=== PATIENT | male | born 1955 | race Caucasian/White ===

== ENCOUNTER → 2018-07-05 09:21 | Outpatient (CLI) | payer OTHER, SELFPAY ==
[2018-07-05 09:56] LABS: Add Manual Diff / Slide Review NO; Basophils Absolute Auto 0 /uL (0-100); Basophils Percent Auto 0.7 % (0-2); Eosinophils Absolute Auto 300 /uL (0-450); Eosinophils Percent Auto 4.9 % (2-4); Hematocrit 48.4 % (41-53); Hemoglobin 16.2 g/dL (13.5-17.5); Lymphocytes Absolute Auto 2200 /uL (1100-4500); Lymphocytes Percent Auto 35.5 % (25-40); Mean Corpuscular HGB Conc 33.4 % (30-36); Mean Corpuscular Volume 89.9 fL (80-100); Monocytes Absolute Auto 600 /uL (0-900); Monocytes Percent Auto 9.2 % (3-14); Neutrophils Absolute Auto 3000 /uL (1500-7000); Neutrophils Percent Auto 49.7 % (50-75); Platelet Count 246 X10^3/uL (150-400); Red Blood Cell Count 5.38 X10^6/uL (4.5-5.9); Red Cell Distribution Width 12.9 % (11.6-14.8); White Blood Cell Count 6.1 X10^3/uL (4.5-11.0)
[2018-07-05 10:47] LABS: Alanine Aminotransferase 49 IU/L (21-72); Albumin 4.6 g/dL (3.5-5.0); Albumin Globulin Ratio 1.6 (1.0-2.8); Alkaline Phosphatase 60 U/L (38-126); Aspartate Aminotransferase 27 IU/L (17-59); BUN Creatinine Ratio 15.5 (6-22); Bilirubin Total 0.9 mg/dL (0.2-1.3); Blood Urea Nitrogen 17 mg/dL (9-20); Calcium 8.9 mg/dL (8.4-10.2); Carbon Dioxide 28 mmol/L (22-32); Chloride 102 mmol/L (98-107); Cholesterol 221 mg/dL (140-199); Estimated Glomerular Filt Rate > 60.0 mL/min (>60); Globulin 2.9 g/dL (1.7-4.1); Glucose 101 mg/dL (80-110); HDL Cholesterol 34 mg/dL (40-60); HEMOLYSIS < 15 (0-50); LDL Cholesterol Calculated 127 mg/dL (<100); Potassium 4.4 mmol/L (3.4-5.1); Sodium 140 mmol/L (137-145); Total Protein 7.5 g/dL (6.3-8.2); Triglycerides 301 mg/dL (35-150)
[2018-07-05 11:11] LABS: Prostate Specific Antigen Scrn 1.13 ng/mL (0.1-4.0)
[2018-07-05 12:38] LABS: TSH w/ Reflex to FT4 2.28 uIU/mL (0.47-4.68)
== END ==
PROVIDERS: Family Provider Family Medicine; PCP Family Medicine; Visit Provider Family Medicine
DX: I83.019 Varicose veins of right lower extremity with ulcer of unspecified site (principal); L97.919 Non-pressure chronic ulcer of unspecified part of right lower leg with unspecified severity; Z12.5 Encounter for screening for malignant neoplasm of prostate; Z13.220 Encounter for screening for lipoid disorders
CPT/HCPCS: 36415; 80053; 80061; 84443; 85025; G0103

== ENCOUNTER → 2019-01-01 10:12 | Outpatient (CLI) | payer OTHER, SELFPAY ==
[2019-01-01 11:04] LABS: Cholesterol 182 mg/dL (140-199); HDL Cholesterol 43 mg/dL (40-60); LDL Cholesterol Calculated 106 mg/dL (<100); Triglycerides 167 mg/dL (35-150)
== END ==
PROVIDERS: PCP Family Medicine; Visit Provider Family Medicine
DX: E78.2 Mixed hyperlipidemia (principal)
CPT/HCPCS: 36415; 80061

== ENCOUNTER → 2019-04-30 12:52 | Outpatient (CLI) | payer OTHER, SELFPAY ==
[2019-04-30 13:55] LABS: BUN Creatinine Ratio 14.5 (6-22); Blood Urea Nitrogen 16 mg/dL (9-20); Calcium 9.3 mg/dL (8.4-10.2); Carbon Dioxide 30 mmol/L (22-32); Chloride 100 mmol/L (98-107); Estimated Glomerular Filt Rate > 60.0 mL/min (>60); Glucose 93 mg/dL (80-110); HEMOLYSIS 15 (0-50); Potassium 4.3 mmol/L (3.4-5.1); Sodium 139 mmol/L (137-145)
[2019-04-30 19:03] LABS: Bacteria Urine None Seen
[2019-04-30 19:51] LABS: Appearance Urine UA CLOUDY; Bilirubin Urine UA NEGATIVE (NEGATIVE); Color Urine UA YELLOW; Glucose Urine UA NEGATIVE (Negative); Ketones Urine UA NEGATIVE (NEGATIVE); Leukocyte Esterase Urine UA NEGATIVE (NEGATIVE); Nitrite Urine UA NEGATIVE (Negative); Occult Blood Urine UA 2+ (Negative); Protein Urine UA NEGATIVE (Negative); Urobilinogen Urine UA 0.2 E.U./dL (0.2)
[2019-04-30 20:00] LABS: Amorphous Sediment Urine 3+; Culture Indicated Urine Cult Not Indicated; RBC Urine 5-10/HPF (0-5/HPF); Squamous Epithelial Cell Urine 0-1 /HPF (0-5/HPF); WBC Urine 0-1/HPF (0-5/HPF)
== END ==
PROVIDERS: Family Provider Family Medicine; PCP Family Medicine; Visit Provider Nurse Practitioner
DX: R10.9 Unspecified abdominal pain (principal)
CPT/HCPCS: 36415; 80048; 81001

== ENCOUNTER → 2019-05-03 11:01 | Outpatient (CLI) | payer OTHER, SELFPAY ==
--- NOTE | 2019-05-03 11:02 | DI.CT.S_ITS ---
PROCEDURE: CT KIDNEY URETER BLADDER (KUB) INDICATIONS: hematuria, left flank pain TECHNIQUE: Noncontrast 5 mm thick sections acquired from the diaphragms to the symphysis. 5 mm thick coronal and sagittal reformats were then performed. For radiation dose reduction, the following was used: automated exposure control, adjustment of mA and/or kV according to patient size. COMPARISON: None. FINDINGS: Image quality: Excellent. Lung bases: Lung bases are clear. Heart size is normal. Urinary system: Both kidneys are normal in size. No kidney stones. No hydronephrosis or perinephric fat stranding. There are parapelvic cysts in kidneys bilaterally, more numerous on the left. Both ureters appear non-dilated throughout their expected courses. Bladder wall thickness is normal; no calcified bladder stones. Other solid organs: Liver is normal in size. Gallbladder is normal. Pancreas is normal in contours. Spleen is normal in size. No adrenal nodules. Peritoneum and bowel: Unenhanced bowel loops demonstrate normal wall thickness and caliber. There are numerous colonic diverticula. There is focal thickening and pericolonic stranding in the descending colon consistent with diverticulitis. A trace amount of free fluid in the left paracolic gutter. No free or air. Normal appendix. Nodes and vessels: No retroperitoneal or mesenteric adenopathy by size criteria. Aorta and inferior vena cava are normal in caliber. Abdominal wall: There is a fat containing umbilical hernia. Pelvis: No free pelvic fluid. No inguinal hernias or adenopathy. Bones: No suspicious bony lesions. No vertebral body compression fractures. IMPRESSION: 1. No renal stone or hydronephrosis. Bilateral parapelvic cysts are present. No definitive CT findings to explain left flank pain and hematuria. 2. Diverticulosis. There is focal thickening and pericolonic stranding in the descending colon consistent with acute diverticulitis. No diverticular abscess. 3. A fat containing umbilical hernia. Dictated by: Keo Limon M.D. on 05/03/2019 at 13:28 Approved by: Keo Limon M.D. on 05/03/2019 at 17:26
== END ==
PROVIDERS: Family Provider Family Medicine; PCP Family Medicine; Visit Provider Nurse Practitioner
DX: R31.9 Hematuria, unspecified (principal); R10.9 Unspecified abdominal pain; N28.1 Cyst of kidney, acquired; K57.90 Diverticulosis of intestine, part unspecified, without perforation or abscess without bleeding; K42.9 Umbilical hernia without obstruction or gangrene
CPT/HCPCS: 74176

== ENCOUNTER → 2020-01-28 10:37 | Outpatient (CLI) | payer OTHER, SELFPAY ==
--- NOTE | 2020-01-28 10:42 | DI.RAD.S_ITS ---
PROCEDURE: XR KNEE LT 3V INDICATIONS: Knee pain no injury TECHNIQUE: 3 views of the knee were acquired. COMPARISON: None. FINDINGS: Bones: No fractures or dislocations. No suspicious bony lesions. Degenerative spurring. No definite joint space narrowing. Soft tissues: No joint effusion. No suspicious soft tissue calcifications. IMPRESSION: Mild degenerative changes. Dictated by: Leeroy Chandra M.D. on 01/28/2020 at 16:14 Approved by: Leeroy Chandra M.D. on 01/28/2020 at 16:15
--- NOTE | 2020-01-28 10:42 | DI.RAD.S_ITS ---
PROCEDURE: XR KNEE RT 3V INDICATIONS: Knee pain no injury TECHNIQUE: 3 views of the knee were acquired. COMPARISON: None. FINDINGS: Bones: No fractures or dislocations. There is chronic osseous fragmentation and corticated ossicle formation at the tibial tuberosity. There is suggestion of thickening of the distal patellar tendon. Soft tissues: No joint effusion. No suspicious soft tissue calcifications. IMPRESSION: Chronic sequela suggestive of Herlong-Schlatter syndrome. Dictated by: Leeroy Chandra M.D. on 01/28/2020 at 16:15 Approved by: Leeroy Chandra M.D. on 01/28/2020 at 16:17
[2020-01-28 11:04] LABS: Add Manual Diff / Slide Review NO; Basophils Absolute Auto 0 /uL (0-100); Basophils Percent Auto 0.6 % (0-2); Eosinophils Absolute Auto 300 /uL (0-450); Hematocrit 45.4 % (41-53); Hemoglobin 15.9 g/dL (13.5-17.5); Lymphocytes Absolute Auto 1900 /uL (1100-4500); Lymphocytes Percent Auto 32.7 % (25-40); Mean Corpuscular Hemoglobin 30.8 PG (26-34); Monocytes Absolute Auto 500 /uL (0-900); Monocytes Percent Auto 8.2 % (3-14); Neutrophils Absolute Auto 3100 /uL (1500-7000); Neutrophils Percent Auto 53.5 % (50-75); Platelet Count 235 X10^3/uL (150-400); Red Blood Cell Count 5.15 X10^6/uL (4.5-5.9); Red Cell Distribution Width 12.8 % (11.6-14.8); White Blood Cell Count 5.7 X10^3/uL (4.5-11.0)
[2020-01-28 11:21] LABS: Alanine Aminotransferase 51 IU/L (<50); Albumin 4.4 g/dL (3.5-5.0); Albumin Globulin Ratio 1.7 (1.0-2.8); Alkaline Phosphatase 61 U/L (38-126); Aspartate Aminotransferase 37 IU/L (17-59); BUN Creatinine Ratio 20.8 (6-22); Bilirubin Total 0.7 mg/dL (0.2-1.3); Blood Urea Nitrogen 20 mg/dL (9-20); Calcium 9.4 mg/dL (8.4-10.2); Carbon Dioxide 27 mmol/L (22-32); Chloride 105 mmol/L (98-107); Cholesterol 165 mg/dL (140-199); Estimated Glomerular Filt Rate > 60.0 mL/min (>60); Globulin 2.6 g/dL (1.7-4.1); Glucose 102 mg/dL (80-110); HDL Cholesterol 49 mg/dL (40-60); HEMOLYSIS < 15 (0-50); LDL Cholesterol Calculated 90 mg/dL (<100); Potassium 4.7 mmol/L (3.4-5.1); Sodium 139 mmol/L (137-145); Triglycerides 130 mg/dL (35-150)
[2020-01-28 11:48] LABS: Prostate Specific Antigen Scrn 1.06 ng/mL (0.1-4.0)
== END ==
PROVIDERS: Family Provider Family Medicine; PCP Family Medicine; Referring Provider Family Medicine; Visit Provider Family Medicine
DX: M25.562 Pain in left knee (principal); M25.561 Pain in right knee; E78.2 Mixed hyperlipidemia
CPT/HCPCS: 36415; 73562; 80053; 80061; 85025; G0103

== ENCOUNTER → 2020-02-09 08:37 | Outpatient (CLI) | payer OTHER, SELFPAY ==
[2020-02-10 18:56] LABS: COVID19 Sendout Not Detected (Not Detect)
== END ==
PROVIDERS: Family Provider Family Medicine; PCP Family Medicine; Visit Provider Nurse Practitioner
DX: Z11.59 Encounter for screening for other viral diseases (principal)
CPT/HCPCS: 87635

== ENCOUNTER 2020-02-12 12:50 | Day surgery (SDC) | payer OTHER, SELFPAY ==
[2020-02-07 15:09] VITALS: BMI 26.6
[2020-02-12] MEDS: LACTATED RINGERS 1,000 ML 42 ML IV (13:11)
[2020-02-12 13:24] VITALS: BP 118/79; PULSE 68; RESP 16; TEMP 36.4; O2SAT 98; BMI 26.6
--- NOTE | 2020-02-12 14:01 | PM.PREOP ---
Pre-operative Note COVID-19 COVID-19 status: Negative Interval Note History & Physical reviewed/Exam performed by Physician: Yes Changes to H&P: No
[2020-02-12] MEDS: CEFAZOLIN 2 GM/100 ML FROZ.PIGGY IV (14:21)
--- NOTE | 2020-02-12 14:37 | SUR.OPER ---
Supine on padded OR bed, head on pillow, arms secured on padded arm boards at <90 degrees abduction, legs uncrossed, safety belt at thigh, tape over blanket over lower legs.
[2020-02-12] MEDS: BUPIVACAINE 0.25% (PF) VIAL 30 ML INJ (14:42)
[2020-02-12 15:43] VITALS: BP 91/60; PULSE 58; RESP 13; TEMP 36.4; O2SAT 96
[2020-02-12 15:49] VITALS: BP 101/70; PULSE 58; RESP 11; O2SAT 95
--- NOTE | 2020-02-12 15:53 | P.OP_ITS ---
Operative Date/Time/Diagnoses Date of procedure: 02/12/20 Time of procedure: 15:53 Pre-op diagnosis: left inguinal hernia Post-op diagnosis: same Procedure & Clinicians Procedure: Open left inguinal hernia repair Same procedure as scheduled: Yes Indications: 64-year-old man with a reducible symptomatic left inguinal hernia here for elective repair Surgeon: Ari Landaverde Click Yes if Unassisted: Yes Anesthesia Type: General Operative Notes Findings: Cord lipoma, large direct floor defect Specimen(s): none sent Estimated Blood Loss (mL): 20 Procedure in detail: The patient was placed supine on the table and bilateral lower extremity compression devices were applied. Anesthesia was induced they were intubated with an LMA and received 2g of Ancef. A time-out was performed. They were prepped and draped in sterile fashion. The left external inguinal ring and the anterior superior iliac crest were identified and marked. 1 finger breath above the inguinal ligament the skin was infiltrated with 0.25% bupivacaine. The skin incision was made here and the subcutaneous tissues were divided with electrocautery exposing the external oblique aponeurosis which was then opened along the direction of its fibers. The ilioinguinal nerve was identified on the anterior aspect of the cord and protected. Using a kittner cord was carefully dissected away from the inguinal canal adjacent to the pubic tubercle. The cord was freed and encircled with a Mellissa drain. A sizable direct floor defect was identified. The cremasteric fibers surrounding the cord were divided using electrocautery. The vas deferens and the testicular vessels were preserved and protected. There was no indirect hernia there was a cord lipoma which was skeletonized away from the vas deferens and testicular blood supply. The cord lipoma was skeletonized back to the internal ring ligated with Vicryl and transected. A plug of Prolene mesh was placed into the floor defect and secured with Vicryl suture to both the transversalis and the inguinal ligament. I selected a 7x 15 cm lightweight Pro Loop hernia mesh. The inferior medial aspect of the mesh was anchored to the periosteum of the pubic tubercle such that there was approximately 2 cm of tubercle overlap with 0 Prolene and then was run continuously along the inferior edge of the mesh to the shelving edge of the inguinal ligament. Interrupted 3 0 Vicryl suture was used to anchor the superior aspect of the mesh to the conjoined tendon in several places. The tails were then reapproximated around the spermatic cord loosely. The tails of the mesh were then tucked under the external oblique aponeurosis. The repair was checked for hemostasis. The wound was irrigated with sterile saline. The external oblique aponeurosis was reapproximated in a running fashion using 3 0 Vicryl. The subcutaneous tissues were reapproximated with 3 0 Vicryl skin close d with 4 0 Monocryl followed by the application of Dermabond. At the end of the operation ensure that both testicles were within the scrotum. The sponge instrument count at the end operation was correct. The patient emerged from anesthesia was extubated and transferred to the postoperative care unit in stable condition. A total of 30 ml of of 0.25% bupivicaine was used to infiltrate the skin. Complications: none Post-operative Condition: stable Disposition: same day surgery
[2020-02-12 15:56] VITALS: BP 87/62; PULSE 69; RESP 19; O2SAT 96
[2020-02-12 16:00] VITALS: BP 103/65; BP 94/63; PULSE 66; RESP 12; RESP 20; TEMP 36.4; O2SAT 92; O2SAT 96
[2020-02-12 16:25] VITALS: BP 100/60; PULSE 65; RESP 18; O2SAT 96
== END 2020-02-12 16:30 | disposition home or self-care (01) ==
PROVIDERS: Family Provider Family Medicine; PCP Family Medicine; Referring Provider Family Medicine; Visit Provider Surgery
PROC: (CPT 49505; principal; 2020-02-12 14:15)
DX: K40.90 Unilateral inguinal hernia, without obstruction or gangrene, not specified as recurrent (principal); E78.5 Hyperlipidemia, unspecified; D17.6 Benign lipomatous neoplasm of spermatic cord
CPT/HCPCS: 49505; C1781; J0690; J1100; J2250; J2405; J2704; J3010

== ENCOUNTER → 2021-12-02 10:16 | Outpatient (CLI) | payer OTHER, SELFPAY ==
[2021-12-02 11:12] LABS: Alanine Aminotransferase 39 IU/L (<50); Albumin 4.4 g/dL (3.5-5.0); Albumin Globulin Ratio 1.7 (1.0-2.8); Alkaline Phosphatase 58 U/L (38-126); Aspartate Aminotransferase 32 IU/L (17-59); BUN Creatinine Ratio 14.2 (6-22); Bilirubin Total 0.8 mg/dL (0.2-1.3); Blood Urea Nitrogen 16 mg/dL (9-20); Calcium 9.2 mg/dL (8.4-10.2); Carbon Dioxide 29 mmol/L (22-32); Chloride 104 mmol/L (98-107); Cholesterol 182 mg/dL (140-199); Estimated Glomerular Filt Rate > 60 mL/min (>60); Globulin 2.6 g/dL (1.7-4.1); Glucose 98 mg/dL (80-110); HDL Cholesterol 51 mg/dL (40-60); HEMOLYSIS < 15 (0-50); LDL Cholesterol Calculated 101 mg/dL (<100); Potassium 4.3 mmol/L (3.4-5.1); Sodium 139 mmol/L (137-145); Triglycerides 150 mg/dL (35-150)
[2021-12-02 11:39] LABS: Prostate Specific Antigen Scrn 1.64 ng/mL (0.1-4.0)
== END ==
PROVIDERS: Family Provider Family Medicine; PCP Internal Medicine; Referring Provider Internal Medicine; Visit Provider Internal Medicine
DX: E78.2 Mixed hyperlipidemia (principal); K21.9 Gastro-esophageal reflux disease without esophagitis; Z12.5 Encounter for screening for malignant neoplasm of prostate
CPT/HCPCS: 36415; 80053; 80061; G0103

== ENCOUNTER → 2023-06-10 09:01 | Outpatient (CLI) | payer OTHER, SELFPAY ==
[2023-06-10 10:08] LABS: Alanine Aminotransferase 39 IU/L (<50); Albumin Globulin Ratio 1.5 (1.0-2.8); Alkaline Phosphatase 52 U/L (38-126); Aspartate Aminotransferase 31 IU/L (17-59); BUN Creatinine Ratio 18.6 (6-22); Bilirubin Total 0.7 mg/dL (0.2-1.3); Blood Urea Nitrogen 18 mg/dL (9-20); Calcium 9.2 mg/dL (8.4-10.2); Carbon Dioxide 25 mmol/L (22-32); Chloride 106 mmol/L (98-107); Cholesterol 183 mg/dL (140-199); Estimated Glomerular Filt Rate > 60 mL/min (>60); Globulin 2.7 g/dL (1.7-4.1); Glucose 102 mg/dL (80-110); HDL Cholesterol 53 mg/dL (40-60); HEMOLYSIS < 15 (0-50); LDL Cholesterol Calculated 103 mg/dL (<100); Potassium 4.5 mmol/L (3.4-5.1); Sodium 138 mmol/L (137-145); Total Protein 6.7 g/dL (6.3-8.2); Triglycerides 137 mg/dL (35-150)
[2023-06-24 07:20] LABS: Percent Free Testosterone 1.75 % (1.50-4.20); Testosterone Free 8.59 ng/dL (5.00-21.00); Testosterone Total 490.6 ng/dL (264.0-916.0)
== END ==
PROVIDERS: Family Provider Family Medicine; PCP Internal Medicine; Referring Provider Internal Medicine; Visit Provider Internal Medicine
DX: E78.2 Mixed hyperlipidemia (principal); N52.9 Male erectile dysfunction, unspecified
CPT/HCPCS: 36415; 80053; 80061; 84402; 84403

== ENCOUNTER → 2024-01-23 09:43 | Outpatient (CLI) | payer OTHER, SELFPAY ==
[2024-01-23 11:12] LABS: Alanine Aminotransferase 31 IU/L (<50); Albumin Globulin Ratio 1.8 (1.0-2.8); Alkaline Phosphatase 58 U/L (38-126); Aspartate Aminotransferase 28 IU/L (17-59); BUN Creatinine Ratio 18.9 (6-22); Bilirubin Total 0.7 mg/dL (0.2-1.3); Blood Urea Nitrogen 18 mg/dL (9-20); Calcium 8.9 mg/dL (8.4-10.2); Carbon Dioxide 23 mmol/L (22-32); Chloride 108 mmol/L (98-107); Cholesterol 159 mg/dL (140-199); Estimated Glomerular Filt Rate > 60 mL/min (>60); Globulin 2.2 g/dL (1.7-4.1); Glucose 95 mg/dL (80-110); HDL Cholesterol 46 mg/dL (40-60); HEMOLYSIS < 15 (0-50); LDL Cholesterol Calculated 88 mg/dL (<100); Potassium 4.4 mmol/L (3.4-5.1); Sodium 137 mmol/L (137-145); Total Protein 6.2 g/dL (6.3-8.2); Triglycerides 125 mg/dL (35-150)
[2024-01-23 11:35] LABS: Prostate Specific Antigen Scrn 2.65 ng/mL (0.1-4.0)
== END ==
PROVIDERS: Family Provider Family Medicine; PCP Internal Medicine; Referring Provider Internal Medicine; Visit Provider Internal Medicine
DX: E78.2 Mixed hyperlipidemia (principal); Z12.5 Encounter for screening for malignant neoplasm of prostate
CPT/HCPCS: 36415; 80053; 80061; G0103

== ENCOUNTER 2024-04-18 06:23 | Day surgery (SDC) | payer OTHER, SELFPAY ==
--- NOTE | 2024-04-17 13:41 | PM.PREOP ---
Pre-operative Note Interval Note History & Physical reviewed/Exam performed by Physician: Yes Changes to H&P: No
[2024-04-18 06:45] VITALS: BMI 27.1
[2024-04-18 06:50] VITALS: BP 107/70; PULSE 62; RESP 17; TEMP 36.1; O2SAT 96
[2024-04-18] MEDS: FAMOTIDINE 20 MG/2 ML VIAL IV (07:02)
[2024-04-18] MEDS: ACETAMINOPHEN 325 MG TABLET 975 MG PO (07:02)
[2024-04-18] MEDS: LACTATED RINGERS 1,000 ML 42 ML IV (07:07)
--- NOTE | 2024-04-18 07:34 | PM.OP.1 ---
Operative Date/Time/Diagnoses Date of procedure: 04/18/24 Time of procedure: 07:34 Pre-op diagnosis: umbilical hernia Post-op diagnosis: same Procedure & Clinicians Procedure: open umbilical hernia repair 2cm Same procedure as scheduled: Yes Indications: symptomatic reducible umbilical hernia Surgeon: Ari Landaverde Click Yes if Unassisted: Yes Anesthesia Type: General Operative Notes Findings: 3cm fascial defect Specimen(s): none sent Estimated Blood Loss (mL): 20 Procedure in detail: Patient was brought to the operating room placed supine on the table. Bilateral lower extremity compression devices were applied. General anesthesia was induced and they were intubated with an endotracheal tube. They received 2 g of Ancef prior to skin incision. They were prepped and draped in sterile fashion. A time-out was performed. A curvilinear incision was made inferior to the umbilicus. The subcutaneous tissues were divided. The umbilical hernia was identified and the hernia sac was dissected off the umbilical skin and circumferentially off of the fascia defect. The hernia sac was sharply opened and contained viable omentum. The omentum was reduced back into the abdomen. Using blunt dissection I carefully carefully freed the hernia sac from beneath the fascia defect in order to accomodate the mesh. The fascia defect was 3 cm in maximal diameter. A Bard Ventralex ST hernia patch 6 cm was inserted beneath the fascia defect and above the peritoneum in a sublay position. The mesh was anchored in multiple locations using Ethibond suture to the fascia and the fascial defect was closed over the mesh. The umbilical skin was tacked to the subcutaneous tissues and then the remainder of the subcutaneous tissues were reapproximated using 3 0 Vicry,l skin closed with 4 0 Monocryl followed by the application of Dermabond and Steri-Strips. Sponge instrument count at the end of the operation was correct. Patient tolerated procedure well was extubated and transferred to postoperative care unit in stable condition. Complications: none Post-operative Condition: stable Disposition: same day surgery
[2024-04-18] MEDS: CEFAZOLIN 2 GM/100 ML PREMIX 100 ML IV (07:51)
--- NOTE | 2024-04-18 07:57 | SUR.OPER ---
Supine on padded OR bed, head on pillow, arms secured on padded arm boards at <90 degrees abduction, legs uncrossed, safety belt at thigh, tape over blanket over lower legs.
[2024-04-18] MEDS: BUPIVACAINE 0.25% (PF) VIAL 30 ML INJ (08:02)
[2024-04-18 08:36] VITALS: BP 134/78; PULSE 79; RESP 18; TEMP 36.2; O2SAT 98
[2024-04-18 08:40] VITALS: BP 131/78; PULSE 65; RESP 17; O2SAT 97
[2024-04-18 08:45] VITALS: BP 130/78; PULSE 68; RESP 20; O2SAT 97
[2024-04-18 08:50] VITALS: BP 132/74; PULSE 69; RESP 16; O2SAT 96
[2024-04-18] MEDS: OXYCODONE IR 5 MG TABLET PO (08:53)
[2024-04-18 08:56] VITALS: BP 125/83; PULSE 77; RESP 16; TEMP 36.2; O2SAT 93
== END 2024-04-18 09:42 | disposition home or self-care (01) ==
PROVIDERS: Family Provider Family Medicine; PCP Internal Medicine; Referring Provider Surgery; Visit Provider Surgery
PROC: (CPT 49593; principal; 2024-04-18 07:45)
DX: K42.9 Umbilical hernia without obstruction or gangrene (principal)
CPT/HCPCS: 49593; C1781; J0690; J1100; J1885; J2250; J2405; J2704; J3010

== ENCOUNTER 2024-05-29 08:46 | Day surgery (SDC) | payer OTHER, SELFPAY ==
--- NOTE | 2024-05-29 | PATH_ITS ---
[facility] Accession Number: [id number] No. of containers..01 Tissue . 01 Material submitted: . colon - ASCENDING COLON POLYP . 01 Diagnosis: ASCENDING COLON POLYP: Tubular adenoma. [facility] 05/31/2024 1139 Local . 01 Electronically signed: . Lucas Victoria MD, Pathologist NPI- [id number] . 01 Gross description: . Received in formalin with two patient identifiers and ascending colon polyp, are two khan soft tissue fragments ranging from 0.3 x 0.3 x 0.3 cm to 1.2 x 0.6 x 0.5 cm. The largest specimen is inked blue. Sectioned and all submitted in A1. ([id number]) /MRV 05/31/2024 1139 Local . 01 Pathologist provided ICD-10: D12.2 . 01 CPT . 510901 Specimen Comment: A courtesy copy of this report has been sent to [phone] Performed at: [address] [id number] MD Lucas Victoria MD Phone: [phone]
[2024-05-29 09:58] VITALS: BMI 27.1
[2024-05-29 10:02] VITALS: BP 124/80; PULSE 63; RESP 16; TEMP 36.2; O2SAT 97
--- NOTE | 2024-05-29 10:43 | P.HP_ITS ---
History of Present Illness History of Present Illness Date Patient Seen: 05/29/24 Time Patient Seen: 10:43 Chief complaint: [facility] [place] Narrative: 68-year-old man here for screening colonoscopy. Last colonoscopy 15 years ago normal. No family history of intestinal malignancy. No abdominal concerns today. [facility] Medical History Hearing loss, right Umbilical hernia Erectile dysfunction GERD without esophagitis Diverticular disease of colon Varicose vein of leg Hernia Arthritis Actinic keratosis (07/13/16) Surgical History H/O umbilical hernia repair (~04/18/24) Hx of inguinal hernia repair (01/2020) Hx of tonsillectomy Family History Father Heart disease Social History marital status: unmarried,single household members: children lives independently: Yes occupational status: employed Smoking Status: Former smoker alcohol intake: current substance use type: does not use and marijuana Meds Home Medications and Allergies Home Medications Medication Instructions Recorded Confirmed Type atorvastatin 40 mg tablet 40 mg PO DAILY #90 tabs 01/26/24 05/03/24 Rx tadalafil 20 mg tablet 10 - 20 mg (0.5 - 1 x 20 mg) PO 01/26/24 05/03/24 Rx DAILY PRN sexual activity #20 tabs omeprazole 20 mg capsule,delayed 20 mg PO DAILY 04/16/24 05/03/24 History release acetaminophen 325 mg capsule 650 mg (2 x 325 mg) PO QID PRN 04/18/24 05/03/24 Rx (Tylenol) pain #60 caps docusate sodium 100 mg capsule 100 mg PO BID #30 caps 04/18/24 05/03/24 Rx (Colace) ibuprofen 200 mg tablet 400 mg (2 x 200 mg) PO Q6H #60 tabs 04/18/24 05/03/24 Rx peg 3350-electrolytes 236 240 ml PO Q10M #4,000 mL 04/20/24 05/03/24 Rx gram-22.74 gram-6.74 gram-5.86 gram solution (Golytely) Allergies Allergy/AdvReac Type Severity Reaction Status Date / Time No Known Drug Allergies Allergy Verified 05/03/24 09:04 Exam Vital Signs (past 8 hours): - 05/29/24 10:02 Temperature 97.2 F L Pulse Rate 63 Respiratory Rate 16 Blood Pressure 124/80 Pulse Oximetry 97 Oxygen Delivery Method Room Air Oxygen Delivery Method Room Air Narrative Exam Narrative: General adult man alert oriented no acute distress Chest nonlabored respiration Extremities warm well perfused Assessment & Plan Assessment & Plan narrative: The patient requires colorectal screening and colonoscopy is recommended. Technical details were discussed. Risks, benefits, alternatives explained. Risks including but not limited to myocardial infarction, aspiration, bleeding, pain, missed lesion, incomplete examination, need for further radiographic studies, intestinal injury, and need for major abdominal surgery were discussed. All questions were answered to their satisfaction, and they are in agreement with this plan. Time-Based Coding :: [TOTAL MINUTES] spent with patient and on the chart (including review of chart, obtaining history, exam, reviewing outside data, placing orders, documenting exam and treatment plan, and counseling patient) on [DATE].
[2024-05-29 11:29] VITALS: BP 101/65; PULSE 80; RESP 10; TEMP 36.2; O2SAT 95
--- NOTE | 2024-05-29 11:34 | P.OP.COLON_ITS ---
Operative Date/Time/Diagnoses Date of procedure: 05/29/24 Time of procedure: 11:34 Pre-op diagnosis: Colorectal screening Post-op diagnosis: other (Colonic polyp x2) Procedure & Clinicians Study performed: Colonoscopy and polypectomy Same procedure as scheduled: Yes Indications: Screening Surgeon: Ari Landaverde Procedure Notes Procedure in detail: The history and physical was performed/updated and the patient is ASA class is 2. The procedure was discussed in detail with the patient. Potential risks complications including infection, bleeding, missed diagnosis, perforation, need for surgery, and were explained. Their questions were answered and informed consent was obtained. Patient was brought to the procedure room and placed standard monitoring equipment. The patient's vital signs were monitored continuously throughout the entire procedure. Prior to starting time-out was performed. The patient was placed in the left lateral recumbent position. Procedural sedation was administered by anesthesia. Examination began with a thorough inspection of the perianal area there was no evidence of fissures, fistulae, external hemorrhoids or cutaneous malignancy. The colonoscopy scope was then placed into the anal canal and was advanced to the cecum, which was identified by the ileocecal valve, the appendiceal orifice and the confluence of the taenia. The scope was then slowly withdrawn examining colon thoroughly in all directions, irrigating it of any residual stool. The scope was retroflexed within the rectum The patient tolerated the procedure well. They will be discharged once criteria are met. The prep was of good/excellent quality. The withdrawl time was 7 minutes. FINDINGS * Ascending colon pedunculated 7 mm polyp removed with hot snare * Sigmoid colon-5 mm polyp removed with cold snare. Polyp was removed but was not retrieved despite a extensive search * Gamez diverticulosis Specimen(s): other (Ascending colon polyp) Impression: Colonic polyp x2 Diverticulosis Post-procedure Recommendations: High fiber diet Disposition: same day surgery
[2024-05-29 11:36] VITALS: BP 94/67; PULSE 69; RESP 14; TEMP 36.2; O2SAT 98
== END 2024-05-29 12:38 | disposition home or self-care (01) ==
PROVIDERS: PCP Internal Medicine; Referring Provider Surgery; Visit Provider Surgery
PROC: 0DJD8ZZ Inspection of Lower Intestinal Tract, Via Natural or Artificial Opening Endoscopic (ICD-10-PCS; CPT 45378; principal; 2024-05-29 10:15)
DX: Z12.11 Encounter for screening for malignant neoplasm of colon (principal); K57.30 Diverticulosis of large intestine without perforation or abscess without bleeding; Z87.891 Personal history of nicotine dependence; D12.2 Benign neoplasm of ascending colon
CPT/HCPCS: 45385; J2704

== ENCOUNTER → 2025-01-21 08:16 | Outpatient (CLI) | payer OTHER, SELFPAY ==
[2025-01-21 10:12] LABS: Alanine Aminotransferase 48 IU/L (<50); Albumin 4.3 g/dL (3.5-5.0); Albumin Globulin Ratio 1.9 (1.0-2.8); Alkaline Phosphatase 66 U/L (38-126); Blood Urea Nitrogen 18 mg/dL (9-20); Calcium 8.8 mg/dL (8.4-10.2); Carbon Dioxide 21 mmol/L (22-32); Chloride 106 mmol/L (98-107); Cholesterol 187 mg/dL (140-199); Estimated Glomerular Filt Rate > 60 mL/min (>60); Globulin 2.3 g/dL (1.7-4.1); Glucose 97 mg/dL (70-99); HDL Cholesterol 44 mg/dL (40-60); HEMOLYSIS < 15 (0-50); Potassium 4.5 mmol/L (3.4-5.1); Sodium 136 mmol/L (137-145); Total Protein 6.6 g/dL (6.3-8.2); Triglycerides 167 mg/dL (35-150)
== END ==
PROVIDERS: PCP Internal Medicine; Referring Provider Internal Medicine; Visit Provider Internal Medicine
DX: E78.2 Mixed hyperlipidemia (principal)
CPT/HCPCS: 36415; 80053; 80061

== ENCOUNTER → 2025-01-29 15:18 | Outpatient (CLI) | payer OTHER, SELFPAY | PROVIDERS: PCP Internal Medicine; Referring Provider Internal Medicine; Visit Provider Internal Medicine | DX: Z12.5 Encounter for screening for malignant neoplasm of prostate (principal) | CPT/HCPCS: 36415; G0103 ==